=== PATIENT | male | born 1965 | race Caucasian/White ===

== ENCOUNTER 2016-07-11 18:01 | Emergency (ER) | payer SELFPAY ==
[~2016-07-11] VITALS: Ht 182.9 cm; Wt 106.0 kg
[2016-07-11 18:03] VITALS: BP 136/93
[2016-07-11] MEDS ORDERED: DEXAMETHASONE 4 MG TABLET ONE (18:17)
[2016-07-11] MEDS ORDERED: DEXAMETHASONE 4 MG TABLET PO ONE (18:30)
== END 2016-07-11 18:42 | disposition home or self-care (01) ==
LOC: ED 18:30
DX: J02.9 Acute pharyngitis, unspecified (principal); H92.09 Otalgia, unspecified ear
CPT/HCPCS: 99283